=== PATIENT | female | born 1935 | race Caucasian/White ===

== ENCOUNTER 2019-09-20 09:57 | Day surgery (SDC) | payer BC, MEDICARE ==
[~2019-09-20] VITALS: Ht 154.9 cm; Wt 81.8 kg
[2019-09-20 10:30] VITALS: BP 160/71
[2019-09-20] MEDS ORDERED: fentaNYL/PF 50MCG/1 ML 2ML syringe ONE (11:01)
[2019-09-20] MEDS ORDERED: MIDAZolam 5mg/5ml vial ONE (11:01)
[2019-09-20] MEDS ORDERED: LIDOcaine Viscous 15ml cup ONE (11:01)
[2019-09-20] MEDS ORDERED: IRON1TAB93 PO ×2 (11:08→11:12)
[2019-09-20] MEDS ORDERED: ATOR40TA PO (11:09)
[2019-09-20] MEDS ORDERED: FURO80TA87 PO ×2 (11:10→11:13)
[2019-09-20] MEDS ORDERED: SYN0.088T PO (11:13)
[2019-09-20] MEDS ORDERED: LOSARTIN (11:14)
[2019-09-20] MEDS ORDERED: METF750T46 PO (11:15)
[2019-09-20] MEDS ORDERED: METO50TA16 (11:16)
[2019-09-20 11:30] VITALS: BP 157/110
[2019-09-20 11:39] VITALS: BP 141/94
[2019-09-20 11:49] VITALS: BP 168/71
[2019-09-20 11:59] VITALS: BP 156/88
== END 2019-09-20 12:15 | disposition home or self-care (01) ==
LOC: GI LAB 09:57
PROVIDERS: ATTEND Internal Medicine Gastroenterology
DX: K31.819 Angiodysplasia of stomach and duodenum without bleeding (principal); D50.0 Iron deficiency anemia secondary to blood loss (chronic); K29.50 Unspecified chronic gastritis without bleeding; K29.00 Acute gastritis without bleeding; K31.89 Other diseases of stomach and duodenum
CPT/HCPCS: 43239; 43270; 99152; J2250; J3010; J7040; 43227; A4620

== ENCOUNTER 2021-05-05 15:47 | Inpatient (IN) | payer MEDICARE ==
[~2021-05-05] VITALS: Ht 154.9 cm; Wt 91.8 kg
[~2021-05-05 15:47] MED LIST: ATOR40TA PO; FURO80TA87 PO; IRON1TAB93 PO; LOSARTIN; METF750T46 PO; METO50TA16; SYN0.088T PO
[2021-05-05 16:40] LABS: BASOPHILS % (AUTO) 0.3 % (0-1); EOSINOPHILS # (AUTO) 0.1 X10'3 (0-0.9); EOSINOPHILS % (AUTO) 1.1 % (0-6); HEMATOCRIT 25.5 % (35.0-45.0); HEMOGLOBIN 8.2 g/dl (12.0-16.0); LYMPHOCYTES # (AUTO) 0.7 X10'3 (1.1-4.8); LYMPHOCYTES % (AUTO) 8.9 % (21-51); MEAN CORPUSCULAR HEMOGLOBIN 26.9 PG (27.0-31.0); MEAN CORPUSCULAR HGB CONC 32.3 g/dL (33.0-36.5); MEAN CORPUSCULAR VOLUME 83.4 FL (78-98); MEAN PLATELET VOLUME 7.8 FL (7.4-10.4); MONOCYTES # (AUTO) 1.2 X10'3 (0-0.9); MONOCYTES % (AUTO) 15.5 % (2-12); NEUTROPHILS # (AUTO) 5.6 X10'3 (1.8-7.7); NEUTROPHILS % (AUTO) 74.2 % (42-75); PLATELET COUNT 189 X10'3 (140-440); RED BLOOD COUNT 3.06 X10'6 (4.20-5.60); RED CELL DISTRIBUTION WIDTH 17.9 % (11.5-14.5); WHITE BLOOD COUNT 7.5 X10'3 (4.5-11.0)
[2021-05-05 16:55] LABS: ALANINE AMINOTRANSFERASE 20 U/L (12-78); ALBUMIN 1.9 G/DL (3.4-5.0); ALBUMIN/GLOBULIN RATIO 0.5 (1.1-1.5); ALKALINE PHOSPHATASE 80 IU/L (46-116); ANION GAP 10 (8-16); ASPARTATE AMINO TRANSFERASE 23 U/L (10-37); BILIRUBIN,TOTAL 0.3 MG/DL (0.1-1.0); BLOOD UREA NITROGEN 46 MG/DL (7-18); BUN/CREATININE RATIO 27.2 (6.6-38.0); CALCIUM 7.7 MG/DL (8.5-10.1); CHLORIDE 105 MMOL/L (99-107); CREATININE 1.69 MG/DL (0.40-0.90); GLUCOSE 140 MG/DL (70-104); POTASSIUM 3.8 MMOL/L (3.5-5.1); SODIUM 140 MMOL/L (135-145); TOTAL CARBON DIOXIDE 25.3 MMOL/L (24-32); TOTAL PROTEIN 5.8 G/DL (6.4-8.2); eGFR 29 ML/MIN
[2021-05-05 16:58] LABS: LIPASE 117 U/L (73-393); TROPONIN I 0.04 NG/ML (0.0-0.05)
[2021-05-05 17:46] LABS: TOTAL CELLS COUNTED 100
[2021-05-05 17:47] LABS: ANISOCYTOSIS 1+; HYPERSEGMENTED NEUTROPHILS 1+; LARGE PLATELETS FEW; PLATELET ESTIMATE NORMAL
[2021-05-05 17:51] LABS: HYPOCHROMASIA 1+
[2021-05-05] MEDS ORDERED: CefTRIAXone 2gm/D5W 50ml BAG 50 ML IV ONE (18:45)
[2021-05-05 19:13] LABS: CLARITY,URINE SLIGHTLY CLOUDY (Clear); COLOR,URINE YELLOW (Yellow); GLUCOSE, URINE NEGATIVE (Neg); KETONES,URINE NEGATIVE (Neg); LEUKOCYTE ESTERASE ,URINE LARGE (Neg); NITRITES, URINE NEGATIVE (Neg); OCCULT BLOOD,URINE LARGE (Neg); PH,URINE 5.5 (4.8-8.0); PROTEIN,URINE 100 mg/dl (Neg); UROBILINOGEN,URINE 0.2 E.U/dL (0.2-1.0)
[2021-05-05 19:22] LABS: UA COLLECTION TYPE CLN CATCH MIDSTREAM
[2021-05-05 19:24] LABS: BACTERIA,URINE 3+ /HPF (Neg); WBC,URINE 30-50 /HPF (0-4)
[2021-05-05 19:25] LABS: SQUAMOUS EPITHELIAL CELL,UR NONE SEEN /LPF (FEW)
[2021-05-05] MEDS ORDERED: magnesium 2GM in 50ml NS 50 ML IV PRN (19:45)
[2021-05-05] MEDS ORDERED: acetaminophen 325mg tablet PO PRN (19:45)
[2021-05-05] MEDS ORDERED: magnesium Cl slow-release 64mg tablet PO PRN (19:45)
[2021-05-05] MEDS ORDERED: potassium Cl 20 mEq SR tablet PO PRN ×2 (19:45)
[2021-05-05] MEDS ORDERED: ondansetron/PF 4mg/2ml inj IV PRN (19:45)
[2021-05-05] MEDS ORDERED: magnesium 4gm in 100ml NS 100 ML IV PRN (19:45)
[2021-05-05] MEDS ORDERED: potassium Cl 40MEQ/1/2NS 520ml 520 ML IV PRN ×2 (19:45)
[2021-05-05] MEDS ORDERED: mag hydrox/Alum hydrox/simeth 30ml oral suspension PO PRN (19:45)
[2021-05-05] MEDS ORDERED: magnesium hydroxide 30ml (MOM) UD suspension PO PRN (19:45)
[2021-05-05] MEDS ORDERED: PANT-47 PO (20:22)
[2021-05-05] MEDS ORDERED: LEVO50CA4 PO (20:22)
[2021-05-05] MEDS ORDERED: FLUT16SP13 BOTHNARES (20:22)
[2021-05-05] MEDS ORDERED: FERR-39 PO (20:22)
[2021-05-05] MEDS ORDERED: SIMV-42 PO (20:22)
[2021-05-05] MEDS ORDERED: FURO-150 PO (20:22)
[2021-05-05] MEDS ORDERED: LOSA25TA96 PO (20:22)
[2021-05-05] MEDS ORDERED: METO-395 PO (20:22)
[2021-05-05] MEDS ORDERED: POTA-82 PO (20:22)
[2021-05-05] MEDS: normal saline 1000ml 1,000 ML IV SCH (21:19)
[2021-05-05] MEDS: K and/or MAG REPLACEMENT MC SCH (23:29)
[2021-05-05] MEDS: docusate sod 100mg capsule PO SCH (23:45)
[2021-05-05] MEDS ORDERED: normal saline 1000ml 1,000 ML IV SCH (23:50)
[2021-05-05 23:59] VITALS: BP 177/59
[2021-05-06] LABS: HEMOGLOBIN A1C 5.2 % (4.5-6.2)
--- NOTE | 2021-05-06 06:51 | NUR ---
Problems reprioritized. Patient report given, questions answered & plan of care reviewed with Zainab LANE.
[2021-05-06 07:00] VITALS: BP 149/43
[2021-05-06] MEDS ORDERED: levoTHYROXINE 25mcg tablet PO SCH (07:00)
--- NOTE | 2021-05-06 07:12 | NUR ---
Patient in room [facility]. I have received report from Julienne LANE and had the opportunity to ask questions and assume patient care.
[2021-05-06 07:26] LABS: ALANINE AMINOTRANSFERASE 17 U/L (12-78); ALBUMIN 2.5 G/DL (3.4-5.0); ALBUMIN/GLOBULIN RATIO 0.5 (1.1-1.5); ALKALINE PHOSPHATASE 112 IU/L (46-116); ANION GAP 14 (8-16); ASPARTATE AMINO TRANSFERASE 31 U/L (10-37); BILIRUBIN,TOTAL 0.3 MG/DL (0.1-1.0); BLOOD UREA NITROGEN 45 MG/DL (7-18); BUN/CREATININE RATIO 28.8 (6.6-38.0); CALCIUM 8.4 MG/DL (8.5-10.1); CHLORIDE 104 MMOL/L (99-107); CREATININE 1.56 MG/DL (0.40-0.90); GLUCOSE 130 MG/DL (70-104); MAGNESIUM 2.4 MG/DL (1.5-2.4); POTASSIUM 4.2 MMOL/L (3.5-5.1); SODIUM 139 MMOL/L (135-145); TOTAL CARBON DIOXIDE 20.6 MMOL/L (24-32); TOTAL PROTEIN 7.3 G/DL (6.4-8.2); eGFR 32 ML/MIN
[2021-05-06] MEDS: pantoprazole 40mg Tablet.DR PO SCH ×2 (07:44→20:53)
[2021-05-06] MEDS: docusate sod 100mg capsule PO SCH ×2 (07:44→20:00)
[2021-05-06] MEDS: atorvastatin 20mg tablet PO SCH (07:45)
[2021-05-06] MEDS: levoTHYROXINE 25mcg tablet PO SCH (07:45)
[2021-05-06] MEDS: metoprolol succinate 25mg (24-HOUR) SR. Tablet PO SCH (07:46)
[2021-05-06] MEDS: ferrous sulfate 325mg tablet PO SCH (07:46)
[2021-05-06] MEDS: CefTRIAXone/D5W-Rocephin 1gm 50 ML IV SCH (07:47)
[2021-05-06] MEDS ORDERED: vitamin A & D ointment-NF 1 APPLIC TUBE TP PRN (07:50)
[2021-05-06] MEDS: fluticasone nasal spray 16GM bottle NS SCH (08:00)
[2021-05-06] MEDS: K and/or MAG REPLACEMENT MC SCH ×2 (08:00→20:00)
[2021-05-06 08:51] LABS: BASOPHILS % (AUTO) 0.2 % (0-1); EOSINOPHILS # (AUTO) 0.1 X10'3 (0-0.9); EOSINOPHILS % (AUTO) 1.5 % (0-6); HEMATOCRIT 31.5 % (35.0-45.0); HEMOGLOBIN 10.2 g/dl (12.0-16.0); LYMPHOCYTES # (AUTO) 0.5 X10'3 (1.1-4.8); MEAN CORPUSCULAR HEMOGLOBIN 27.2 PG (27.0-31.0); MEAN CORPUSCULAR HGB CONC 32.3 g/dL (33.0-36.5); MEAN CORPUSCULAR VOLUME 84.1 FL (78-98); MEAN PLATELET VOLUME 7.8 FL (7.4-10.4); MONOCYTES # (AUTO) 0.9 X10'3 (0-0.9); MONOCYTES % (AUTO) 10.2 % (2-12); NEUTROPHILS # (AUTO) 7.2 X10'3 (1.8-7.7); NEUTROPHILS % (AUTO) 82.1 % (42-75); PLATELET COUNT 243 X10'3 (140-440); RED BLOOD COUNT 3.75 X10'6 (4.20-5.60); RED CELL DISTRIBUTION WIDTH 17.9 % (11.5-14.5); WHITE BLOOD COUNT 8.7 X10'3 (4.5-11.0)
[2021-05-06 11:30] VITALS: BP 110/38
--- NOTE | 2021-05-06 11:56 | NUR ---
Malnutrition consult: Pt admitted w/ a potential UTI and a recent decline in status. Per MST, pt is unsure of weight loss and has been eating poorly d/t decreased appetite. Pt noted to have had abd pain and a decrease in appetite over the last few weeks. Pt's wt is consistent w/ a prior admission in September 2019. Observed pt at bedside w/ mild temporal wasting, though unsure of baseline appearance. Pt was sleeping and did not want to wake for interview. Noted pt has BLE 3+ edema. Pt was able to eat in ED though is currently NPO. At this time pt does not meet minimum criteria for malnutrition, will continue to monitor. Addendum: 05/06/21 at [address] Amended: Links added.
[2021-05-06] MEDS: normal saline 1000ml 1,000 ML IV SCH (14:34)
--- NOTE | 2021-05-06 19:14 | NUR ---
Problems reprioritized. Patient report given, questions answered & plan of care reviewed with Pat RN.
[2021-05-06 19:30] VITALS: BP 108/49
[2021-05-06] MEDS: lactobacillus rhamnosus 10,000 MMU CELLS/CAPSULE PO SCH (20:53)
[2021-05-07 00:30] VITALS: BP 127/48
[2021-05-07 06:30] VITALS: BP 123/47
[2021-05-07 06:34] LABS: BASOPHILS % (AUTO) 0.6 % (0-1); EOSINOPHILS # (AUTO) 0.2 X10'3 (0-0.9); EOSINOPHILS % (AUTO) 3.4 % (0-6); HEMATOCRIT 27.4 % (35.0-45.0); HEMOGLOBIN 8.7 g/dl (12.0-16.0); LYMPHOCYTES # (AUTO) 0.7 X10'3 (1.1-4.8); LYMPHOCYTES % (AUTO) 12.6 % (21-51); MEAN CORPUSCULAR HEMOGLOBIN 27.1 PG (27.0-31.0); MEAN CORPUSCULAR HGB CONC 31.9 g/dL (33.0-36.5); MEAN PLATELET VOLUME 7.7 FL (7.4-10.4); MONOCYTES # (AUTO) 0.8 X10'3 (0-0.9); MONOCYTES % (AUTO) 14.3 % (2-12); NEUTROPHILS # (AUTO) 3.9 X10'3 (1.8-7.7); NEUTROPHILS % (AUTO) 69.1 % (42-75); PLATELET COUNT 234 X10'3 (140-440); RED BLOOD COUNT 3.22 X10'6 (4.20-5.60); RED CELL DISTRIBUTION WIDTH 18.1 % (11.5-14.5); WHITE BLOOD COUNT 5.6 X10'3 (4.5-11.0)
--- NOTE | 2021-05-07 06:40 | NUR ---
Patient in room [facility]. I have received report from ARIANA Jorge and had the opportunity to ask questions and assume patient care.
[2021-05-07 07:00] LABS: ALANINE AMINOTRANSFERASE 12 U/L (12-78); ALBUMIN 1.8 G/DL (3.4-5.0); ALBUMIN/GLOBULIN RATIO 0.5 (1.1-1.5); ALKALINE PHOSPHATASE 88 IU/L (46-116); ANION GAP 11 (8-16); ASPARTATE AMINO TRANSFERASE 22 U/L (10-37); BILIRUBIN,TOTAL 0.2 MG/DL (0.1-1.0); BLOOD UREA NITROGEN 48 MG/DL (7-18); BUN/CREATININE RATIO 31.4 (6.6-38.0); CALCIUM 7.6 MG/DL (8.5-10.1); CHLORIDE 108 MMOL/L (99-107); CREATININE 1.53 MG/DL (0.40-0.90); GLUCOSE 106 MG/DL (70-104); MAGNESIUM 2.1 MG/DL (1.5-2.4); POTASSIUM 4.1 MMOL/L (3.5-5.1); SODIUM 143 MMOL/L (135-145); TOTAL CARBON DIOXIDE 23.8 MMOL/L (24-32); TOTAL PROTEIN 5.7 G/DL (6.4-8.2); eGFR 32 ML/MIN
[2021-05-07] MEDS: normal saline 1000ml 1,000 ML IV SCH ×4 (07:57→22:16)
[2021-05-07] MEDS: docusate sod 100mg capsule PO SCH ×2 (09:12→20:00)
[2021-05-07] MEDS: K and/or MAG REPLACEMENT MC SCH ×2 (09:12→20:00)
[2021-05-07] MEDS: atorvastatin 20mg tablet PO SCH (09:16)
[2021-05-07] MEDS: CefTRIAXone/D5W-Rocephin 1gm 50 ML IV SCH (09:16)
[2021-05-07] MEDS: levoTHYROXINE 25mcg tablet PO SCH (09:16)
[2021-05-07] MEDS: lactobacillus rhamnosus 10,000 MMU CELLS/CAPSULE PO SCH ×2 (09:16→22:16)
[2021-05-07] MEDS: metoprolol succinate 25mg (24-HOUR) SR. Tablet PO SCH (09:17)
[2021-05-07] MEDS: pantoprazole 40mg Tablet.DR PO SCH ×2 (09:17→22:16)
[2021-05-07] MEDS: ferrous sulfate 325mg tablet PO SCH (09:18)
[2021-05-07] MEDS: fluticasone nasal spray 16GM bottle NS SCH ×2 (09:21→11:11)
[2021-05-07] MEDS: heparin, porcine 5000 units/ml vial SQ SCH ×2 (09:29→20:00)
[2021-05-07 11:00] VITALS: BP 145/45
[2021-05-07 18:00] VITALS: BP 191/66
--- NOTE | 2021-05-07 18:50 | NUR ---
Problems reprioritized. Patient report given, questions answered & plan of care reviewed with ARIANA Romeo.
[2021-05-07] MEDS: nystatin 15 GM powder TP SCH (22:16)
--- NOTE | 2021-05-07 22:43 | NUR ---
Patient in room [facility]. I have received report from Selina LANE and had the opportunity to ask questions and assume patient care.
[2021-05-08] VITALS: BP 150/52
[2021-05-08 06:11] LABS: BASOPHILS % (AUTO) 0.7 % (0-1); EOSINOPHILS # (AUTO) 0.3 X10'3 (0-0.9); EOSINOPHILS % (AUTO) 4.7 % (0-6); HEMATOCRIT 27.1 % (35.0-45.0); LYMPHOCYTES # (AUTO) 0.8 X10'3 (1.1-4.8); LYMPHOCYTES % (AUTO) 13.4 % (21-51); MEAN CORPUSCULAR HEMOGLOBIN 27.4 PG (27.0-31.0); MEAN CORPUSCULAR VOLUME 82.9 FL (78-98); MEAN PLATELET VOLUME 7.6 FL (7.4-10.4); MONOCYTES # (AUTO) 0.7 X10'3 (0-0.9); MONOCYTES % (AUTO) 11.5 % (2-12); NEUTROPHILS % (AUTO) 69.7 % (42-75); PLATELET COUNT 253 X10'3 (140-440); RED BLOOD COUNT 3.27 X10'6 (4.20-5.60); RED CELL DISTRIBUTION WIDTH 17.6 % (11.5-14.5); WHITE BLOOD COUNT 5.8 X10'3 (4.5-11.0)
[2021-05-08 06:28] LABS: ALANINE AMINOTRANSFERASE 13 U/L (12-78); ALBUMIN/GLOBULIN RATIO 0.5 (1.1-1.5); ALKALINE PHOSPHATASE 94 IU/L (46-116); ANION GAP 10 (8-16); ASPARTATE AMINO TRANSFERASE 22 U/L (10-37); BILIRUBIN,TOTAL 0.2 MG/DL (0.1-1.0); BLOOD UREA NITROGEN 45 MG/DL (7-18); BUN/CREATININE RATIO 34.1 (6.6-38.0); CALCIUM 7.6 MG/DL (8.5-10.1); CHLORIDE 109 MMOL/L (99-107); CREATININE 1.32 MG/DL (0.40-0.90); GLUCOSE 111 MG/DL (70-104); MAGNESIUM 2.1 MG/DL (1.5-2.4); POTASSIUM 3.9 MMOL/L (3.5-5.1); SODIUM 143 MMOL/L (135-145); TOTAL CARBON DIOXIDE 24.2 MMOL/L (24-32); TOTAL PROTEIN 5.9 G/DL (6.4-8.2); eGFR 38 ML/MIN
[2021-05-08 06:30] VITALS: BP 152/56
--- NOTE | 2021-05-08 06:30 | NUR ---
Patient in room [facility]. I have received report from ARIANA Romeo and had the opportunity to ask questions and assume patient care.
--- NOTE | 2021-05-08 06:36 | NUR ---
Problems reprioritized. Patient report given, questions answered & plan of care reviewed with Selina RN.
[2021-05-08] MEDS: K and/or MAG REPLACEMENT MC SCH ×2 (07:21→20:00)
[2021-05-08] MEDS: CefTRIAXone/D5W-Rocephin 1gm 50 ML IV SCH (08:31)
[2021-05-08] MEDS: docusate sod 100mg capsule PO SCH ×2 (08:32→19:45)
[2021-05-08] MEDS: atorvastatin 20mg tablet PO SCH (08:32)
[2021-05-08] MEDS: ferrous sulfate 325mg tablet PO SCH (08:32)
[2021-05-08] MEDS: metoprolol succinate 25mg (24-HOUR) SR. Tablet PO SCH (08:32)
[2021-05-08] MEDS: lactobacillus rhamnosus 10,000 MMU CELLS/CAPSULE PO SCH ×2 (08:32→19:44)
[2021-05-08] MEDS: heparin, porcine 5000 units/ml vial SQ SCH ×2 (08:33→19:47)
[2021-05-08] MEDS: pantoprazole 40mg Tablet.DR PO SCH ×2 (08:33→19:44)
[2021-05-08] MEDS: levoTHYROXINE 25mcg tablet PO SCH (08:33)
[2021-05-08] MEDS: nystatin 15 GM powder TP SCH ×2 (08:34→19:49)
[2021-05-08 11:00] VITALS: BP 155/55
[2021-05-08] MEDS ORDERED: furosemide 40mg/4ml inj IV ONE (12:20)
--- NOTE | 2021-05-08 18:10 | NUR ---
Problems reprioritized. Patient report given, questions answered & plan of care reviewed with ARIANA Van.
[2021-05-08 18:26] VITALS: BP 196/77
--- NOTE | 2021-05-08 18:38 | NUR ---
Patient in room [facility]. I have received report from Selina LANE and had the opportunity to ask questions and assume patient care.
[2021-05-08] MEDS ORDERED: metoprolol tartrate 25mg tablet PO ONE (19:10)
--- NOTE | 2021-05-08 19:14 | NUR ---
Patient's blood pressure at 1850 was 196/74 with manual reading. Contacted Hospitalist regarding this BP and previous elevated BP, order received for one time dose of metoprolol 25mg
[2021-05-08] MEDS: HYDROcodone/acetaminophen 5mg/325mg tablet PO PRN (21:17)
[2021-05-09 00:15] VITALS: BP 95/59
[2021-05-09 06:41] LABS: ALANINE AMINOTRANSFERASE 19 U/L (12-78); ALBUMIN/GLOBULIN RATIO 0.5 (1.1-1.5); ALKALINE PHOSPHATASE 104 IU/L (46-116); ANION GAP 7 (8-16); ASPARTATE AMINO TRANSFERASE 29 U/L (10-37); BILIRUBIN,TOTAL 0.2 MG/DL (0.1-1.0); BLOOD UREA NITROGEN 39 MG/DL (7-18); BUN/CREATININE RATIO 33.6 (6.6-38.0); CALCIUM 7.9 MG/DL (8.5-10.1); CHLORIDE 112 MMOL/L (99-107); CREATININE 1.16 MG/DL (0.40-0.90); GLUCOSE 106 MG/DL (70-104); MAGNESIUM 2.1 MG/DL (1.5-2.4); POTASSIUM 4.1 MMOL/L (3.5-5.1); SODIUM 146 MMOL/L (135-145); TOTAL CARBON DIOXIDE 27.3 MMOL/L (24-32); TOTAL PROTEIN 5.9 G/DL (6.4-8.2); eGFR 44 ML/MIN
--- NOTE | 2021-05-09 06:46 | NUR ---
Patient in room [facility]. I have received report from Rehan LANE and had the opportunity to ask questions and assume patient care.
[2021-05-09 06:55] LABS: BASOPHILS % (AUTO) 0.8 % (0-1); EOSINOPHILS # (AUTO) 0.2 X10'3 (0-0.9); EOSINOPHILS % (AUTO) 4.4 % (0-6); HEMATOCRIT 27.6 % (35.0-45.0); HEMOGLOBIN 8.9 g/dl (12.0-16.0); LYMPHOCYTES # (AUTO) 0.7 X10'3 (1.1-4.8); LYMPHOCYTES % (AUTO) 13.3 % (21-51); MEAN CORPUSCULAR HEMOGLOBIN 26.9 PG (27.0-31.0); MEAN CORPUSCULAR HGB CONC 32.4 g/dL (33.0-36.5); MEAN PLATELET VOLUME 7.4 FL (7.4-10.4); MONOCYTES # (AUTO) 0.6 X10'3 (0-0.9); MONOCYTES % (AUTO) 10.4 % (2-12); NEUTROPHILS # (AUTO) 3.8 X10'3 (1.8-7.7); NEUTROPHILS % (AUTO) 71.1 % (42-75); PLATELET COUNT 263 X10'3 (140-440); RED BLOOD COUNT 3.32 X10'6 (4.20-5.60); RED CELL DISTRIBUTION WIDTH 17.8 % (11.5-14.5); WHITE BLOOD COUNT 5.3 X10'3 (4.5-11.0)
[2021-05-09 07:00] VITALS: BP 116/60
--- NOTE | 2021-05-09 07:00 | NUR ---
Problems reprioritized. Patient report given, questions answered & plan of care reviewed with Kitty LANE.
[2021-05-09] MEDS: K and/or MAG REPLACEMENT MC SCH ×2 (08:00→20:00)
[2021-05-09] MEDS: nystatin 15 GM powder TP SCH ×2 (08:00→20:45)
[2021-05-09] MEDS: atorvastatin 20mg tablet PO SCH (08:14)
[2021-05-09] MEDS: fluticasone nasal spray 16GM bottle NS SCH (08:14)
[2021-05-09] MEDS: lactobacillus rhamnosus 10,000 MMU CELLS/CAPSULE PO SCH ×2 (08:14→20:42)
[2021-05-09] MEDS: metoprolol succinate 25mg (24-HOUR) SR. Tablet PO SCH (08:14)
[2021-05-09] MEDS: levoTHYROXINE 25mcg tablet PO SCH (08:15)
[2021-05-09] MEDS: pantoprazole 40mg Tablet.DR PO SCH ×2 (08:16→20:42)
[2021-05-09] MEDS: ferrous sulfate 325mg tablet PO SCH (08:16)
[2021-05-09] MEDS: CefTRIAXone/D5W-Rocephin 1gm 50 ML IV SCH (08:16)
[2021-05-09] MEDS: heparin, porcine 5000 units/ml vial SQ SCH ×2 (08:16→20:42)
[2021-05-09] MEDS: docusate sod 100mg capsule PO SCH ×2 (08:16→20:00)
[2021-05-09 10:02] LABS: TOTAL CELLS COUNTED 100
[2021-05-09 10:03] LABS: ANISOCYTOSIS 1+; PLATELET ESTIMATE NORMAL
[2021-05-09 10:04] LABS: ELLIPTOCYTES FEW; POLYCHROMASIA FEW; TEAR DROP CELLS FEW
--- NOTE | 2021-05-09 18:30 | NUR ---
Patient in room [facility]. I have received report from FARHAT and had the opportunity to ask questions and assume patient care.
--- NOTE | 2021-05-09 18:45 | NUR ---
patient seen by Dr Bartholomew and PT up to [facility] x2 . All cares given. Family into see patient. Wound consult placed for patients bilat lower legs to be reviewed by wound team sice they are very odorous as requested by Dr Bartholomew. Report given to Rosie LANE
[2021-05-09 19:00] VITALS: BP 183/64
[2021-05-09 23:00] VITALS: BP 166/59
[2021-05-10] MEDS: HYDROcodone/acetaminophen 5mg/325mg tablet PO PRN (00:57)
--- NOTE | 2021-05-10 06:31 | NUR ---
Problems reprioritized. Patient report given, questions answered & plan of care reviewed with MARYBETH.
[2021-05-10 07:00] VITALS: BP 134/45
[2021-05-10] MEDS: K and/or MAG REPLACEMENT MC SCH ×2 (08:00→19:46)
[2021-05-10] MEDS: docusate sod 100mg capsule PO SCH ×2 (08:00→20:00)
[2021-05-10] MEDS: nystatin 15 GM powder TP SCH ×2 (08:04→20:00)
[2021-05-10] MEDS: CefTRIAXone/D5W-Rocephin 1gm 50 ML IV SCH (08:04)
[2021-05-10] MEDS: atorvastatin 20mg tablet PO SCH (08:04)
[2021-05-10] MEDS: lactobacillus rhamnosus 10,000 MMU CELLS/CAPSULE PO SCH ×2 (08:04→20:27)
[2021-05-10] MEDS: ferrous sulfate 325mg tablet PO SCH (08:05)
[2021-05-10] MEDS: pantoprazole 40mg Tablet.DR PO SCH ×2 (08:05→20:27)
[2021-05-10] MEDS: metoprolol succinate 25mg (24-HOUR) SR. Tablet PO SCH (08:05)
[2021-05-10] MEDS: heparin, porcine 5000 units/ml vial SQ SCH ×2 (08:06→20:28)
[2021-05-10] MEDS: levoTHYROXINE 25mcg tablet PO SCH (08:06)
[2021-05-10] MEDS: fluticasone nasal spray 16GM bottle NS SCH (08:06)
[2021-05-10 09:16] LABS: BASOPHILS % (AUTO) 0.6 % (0-1); EOSINOPHILS # (AUTO) 0.2 X10'3 (0-0.9); HEMATOCRIT 29.8 % (35.0-45.0); HEMOGLOBIN 9.7 g/dl (12.0-16.0); LYMPHOCYTES # (AUTO) 0.8 X10'3 (1.1-4.8); LYMPHOCYTES % (AUTO) 14.3 % (21-51); MEAN CORPUSCULAR HEMOGLOBIN 27.2 PG (27.0-31.0); MEAN CORPUSCULAR HGB CONC 32.6 g/dL (33.0-36.5); MEAN CORPUSCULAR VOLUME 83.4 FL (78-98); MEAN PLATELET VOLUME 7.3 FL (7.4-10.4); MONOCYTES # (AUTO) 0.5 X10'3 (0-0.9); MONOCYTES % (AUTO) 8.6 % (2-12); NEUTROPHILS # (AUTO) 4.1 X10'3 (1.8-7.7); NEUTROPHILS % (AUTO) 72.5 % (42-75); PLATELET COUNT 292 X10'3 (140-440); RED BLOOD COUNT 3.57 X10'6 (4.20-5.60); RED CELL DISTRIBUTION WIDTH 17.6 % (11.5-14.5); WHITE BLOOD COUNT 5.6 X10'3 (4.5-11.0)
[2021-05-10 09:30] LABS: ALANINE AMINOTRANSFERASE 22 U/L (12-78); ALBUMIN/GLOBULIN RATIO 0.5 (1.1-1.5); ALKALINE PHOSPHATASE 104 IU/L (46-116); ANION GAP 8 (8-16); ASPARTATE AMINO TRANSFERASE 34 U/L (10-37); BILIRUBIN,TOTAL 0.2 MG/DL (0.1-1.0); BLOOD UREA NITROGEN 30 MG/DL (7-18); BUN/CREATININE RATIO 28.6 (6.6-38.0); CALCIUM 8.1 MG/DL (8.5-10.1); CHLORIDE 110 MMOL/L (99-107); CREATININE 1.05 MG/DL (0.40-0.90); GLUCOSE 93 MG/DL (70-104); MAGNESIUM 2.2 MG/DL (1.5-2.4); POTASSIUM 3.9 MMOL/L (3.5-5.1); SODIUM 145 MMOL/L (135-145); TOTAL CARBON DIOXIDE 26.8 MMOL/L (24-32); TOTAL PROTEIN 6.2 G/DL (6.4-8.2); eGFR 50 ML/MIN
[2021-05-10 11:00] VITALS: BP 156/51
--- NOTE | 2021-05-10 11:58 | NUR ---
Initial: Pt admitted w/ a potential UTI and a recent decline in status per EMR. Pt noted to have had abd pain and a decrease in appetite over the last few weeks though pt is able to eat well now. avg 75-100%% of meals on Heart healthy diet meeting needs. No N/V/D noted, LBM 05/09. No nutritional diagnosis at this time, will continue to monitor. Recs: 1. Continue Regular diet as tolerated 2. Bowel care per rx 3. Scaled wt this admit, weekly wt thereafter Addendum: 05/10/21 at [address] Amended: Links added.
[2021-05-10] MEDS: albuterol 2.5 MG/3 ML nebule NEB SCH ×3 (17:13→23:03)
--- NOTE | 2021-05-10 18:20 | NUR ---
Problems reprioritized. Patient report given, questions answered & plan of care reviewed with ARIANA Barbosa.
[2021-05-10 18:30] VITALS: BP 169/57
[2021-05-11] MEDS: albuterol 2.5 MG/3 ML nebule NEB SCH ×6 (03:13→23:10)
--- NOTE | 2021-05-11 06:18 | NUR ---
Problems reprioritized. Patient report given, questions answered & plan of care reviewed with SUKUMAR. Addendum: 05/11/21 at 0626 by Devin Frost RN Amended: Links added.
--- NOTE | 2021-05-11 06:37 | NUR ---
Patient in room [facility]. I have received report from Familia LANE and had the opportunity to ask questions and assume patient care.
[2021-05-11 08:00] VITALS: BP 140/48
[2021-05-11] MEDS: docusate sod 100mg capsule PO SCH ×2 (08:00→20:00)
[2021-05-11] MEDS: K and/or MAG REPLACEMENT MC SCH ×2 (08:00→20:00)
[2021-05-11] MEDS: fluticasone nasal spray 16GM bottle NS SCH (08:00)
[2021-05-11] MEDS: ferrous sulfate 325mg tablet PO SCH (08:28)
[2021-05-11] MEDS: pantoprazole 40mg Tablet.DR PO SCH ×2 (08:28→20:27)
[2021-05-11] MEDS: lactobacillus rhamnosus 10,000 MMU CELLS/CAPSULE PO SCH ×2 (08:29→20:27)
[2021-05-11] MEDS: atorvastatin 20mg tablet PO SCH (08:29)
[2021-05-11] MEDS: levoTHYROXINE 25mcg tablet PO SCH (08:30)
[2021-05-11] MEDS: metoprolol succinate 25mg (24-HOUR) SR. Tablet PO SCH (08:30)
[2021-05-11] MEDS: heparin, porcine 5000 units/ml vial SQ SCH ×2 (08:30→20:29)
[2021-05-11] MEDS: CefTRIAXone/D5W-Rocephin 1gm 50 ML IV SCH (08:31)
[2021-05-11] MEDS: nystatin 15 GM powder TP SCH ×2 (08:31→20:32)
[2021-05-11 11:00] VITALS: BP 110/44
[2021-05-11 18:00] VITALS: BP 152/59
--- NOTE | 2021-05-11 18:48 | NUR ---
Problems reprioritized. Patient report given, questions answered & plan of care reviewed with Uyen Qiu RN.
--- NOTE | 2021-05-11 18:50 | NUR ---
Patient in room [facility]. I have received report from SUKUMAR LANE and had the opportunity to ask questions and assume patient care.
[2021-05-12] VITALS: BP 158/56
[2021-05-12] MEDS: albuterol 2.5 MG/3 ML nebule NEB SCH ×6 (02:55→23:05)
--- NOTE | 2021-05-12 06:30 | NUR ---
Problems reprioritized. Patient report given, questions answered & plan of care reviewed with ARIE LANE.
[2021-05-12 07:00] VITALS: BP 173/59
[2021-05-12] MEDS: levoTHYROXINE 25mcg tablet PO SCH (07:19)
[2021-05-12] MEDS: K and/or MAG REPLACEMENT MC SCH ×2 (08:00→20:00)
[2021-05-12] MEDS: metoprolol succinate 25mg (24-HOUR) SR. Tablet PO SCH (09:24)
[2021-05-12] MEDS: heparin, porcine 5000 units/ml vial SQ SCH (09:24)
[2021-05-12] MEDS: lactobacillus rhamnosus 10,000 MMU CELLS/CAPSULE PO SCH (09:24)
[2021-05-12] MEDS: docusate sod 100mg capsule PO SCH (09:24)
[2021-05-12] MEDS: pantoprazole 40mg Tablet.DR PO SCH (09:24)
[2021-05-12] MEDS: ferrous sulfate 325mg tablet PO SCH (09:24)
[2021-05-12] MEDS: atorvastatin 20mg tablet PO SCH (09:24)
[2021-05-12] MEDS: fluticasone nasal spray 16GM bottle NS SCH (09:24)
[2021-05-12] MEDS: HYDROcodone/acetaminophen 5mg/325mg tablet PO PRN (09:25)
[2021-05-12] MEDS: nystatin 15 GM powder TP SCH ×2 (09:25→20:00)
[2021-05-12 09:30] VITALS: BP 154/82
[2021-05-12 11:00] VITALS: BP 156/51
--- NOTE | 2021-05-12 15:23 | NUR ---
PT REFUSED 1500 SVN
--- NOTE | 2021-05-12 17:12 | NUR ---
PAGER ID: [phone] MESSAGE: Makeda Dewey [id number] PER PT pt unaware of any cancer. Please reeducate pt. regarding CT scan and cancer and needed f/u when you can?? Thank you! Yajaira [phone]
--- NOTE | 2021-05-12 17:47 | NUR ---
Medicare appeal lost. Plans to DC pt. tomorrow. Daughter wants [facility] for rehab. Referred to [facility]
--- NOTE | 2021-05-12 19:00 | NUR ---
Patient in room [facility]. I have received report from Yajaira LANE and had the opportunity to ask questions and assume patient care.
--- NOTE | 2021-05-12 19:03 | NUR ---
GAVE REPORT TO KENISHA LANE
[2021-05-12 19:30] VITALS: BP 183/58
[2021-05-13 00:09] VITALS: BP 189/79
[2021-05-13] MEDS: docusate sod 100mg capsule PO SCH (00:23)
[2021-05-13] MEDS: lactobacillus rhamnosus 10,000 MMU CELLS/CAPSULE PO SCH ×2 (00:23→09:59)
[2021-05-13] MEDS: pantoprazole 40mg Tablet.DR PO SCH ×2 (00:23→10:00)
[2021-05-13] MEDS: heparin, porcine 5000 units/ml vial SQ SCH ×2 (00:24→09:59)
[2021-05-13] MEDS: albuterol 2.5 MG/3 ML nebule NEB SCH ×2 (03:36→08:45)
[2021-05-13 07:00] VITALS: BP 144/62
--- NOTE | 2021-05-13 07:18 | NUR ---
Patient in room [facility]. I have received report from Rehan LANE and had the opportunity to ask questions and assume patient care.
--- NOTE | 2021-05-13 07:39 | NUR ---
Problems reprioritized. Patient report given, questions answered & plan of care reviewed with Sunshine LANE.
[2021-05-13] MEDS: metoprolol succinate 25mg (24-HOUR) SR. Tablet PO SCH (10:00)
[2021-05-13] MEDS: fluticasone nasal spray 16GM bottle NS SCH (10:00)
[2021-05-13] MEDS: levoTHYROXINE 25mcg tablet PO SCH (10:00)
[2021-05-13] MEDS: atorvastatin 20mg tablet PO SCH (10:00)
--- NOTE | 2021-05-13 11:40 | NUR ---
Patients discharge instructions reviewed with patient and daughter at bedside. Unable to to pictures of patients bilateral lower extremity due to dressing is every 7 days. Patients IV dc'd cannula intact. Patient dressed and depends placed on patient. Patient was a min 2 person assist to wheelchair. DALLAS Marmolejo assisted patient to [employer] vehicle downstairs. Spoke to Radha with case management don't need to get another signatures on medicare due to patient has been denied by Medicare.
== END 2021-05-13 11:40 | disposition home health service (06) | DRG 690 ==
LOC: ER 15:47 → ED HOLD 19:46 → SUR 3N 22:35
PROVIDERS: ADMIT Internal Medicine; ATTEND Internal Medicine
DX: N39.0 Urinary tract infection, site not specified (principal); C78.7 Secondary malignant neoplasm of liver and intrahepatic bile duct; D64.9 Anemia, unspecified; Z66 Do not resuscitate; Z20.822 Contact with and (suspected) exposure to COVID-19; K74.60 Unspecified cirrhosis of liver; E03.9 Hypothyroidism, unspecified; B96.20 Unspecified Escherichia coli [E. coli] as the cause of diseases classified elsewhere; R32 Unspecified urinary incontinence; I12.9 Hypertensive chronic kidney disease with stage 1 through stage 4 chronic kidney disease, or unspecified chronic kidney disease; N18.9 Chronic kidney disease, unspecified; C80.1 Malignant (primary) neoplasm, unspecified; R16.1 Splenomegaly, not elsewhere classified; R59.0 Localized enlarged lymph nodes; R91.8 Other nonspecific abnormal finding of lung field; Z87.891 Personal history of nicotine dependence; Z88.0 Allergy status to penicillin; Z79.899 Other long term (current) drug therapy
CPT/HCPCS: 36415; 71045; 71250; 74176; 80053; 81001; 82948; 83036; 83690; 83735; 84443; 84484; 85007; 85025; 87077; 87081; 87088; 87186; 87635; 93005; 94640; 94760; 97110; 97116; 97161; 97530; 97535; 99285; G0378; J0696; J1644; J1940; J7030